=== PATIENT | female | born 1990 | race Asian ===

== ENCOUNTER 2018-08-13 14:33 | Outpatient (CLI) | payer BC ==
--- NOTE | 2018-08-13 16:37 | ULT ---
LEFT BREAST ULTRASOUND: 08/13/18 HISTORY: Palpable mass at the 1 o'clock position of the left breast. FINDINGS: Sonographic evaluation of the region of palpable concern at the 1 o'clock position of the left breast , 1 cm from the nipple, demonstrates a 5 x 3 x 5 mm hypoechoic nonshadowing mass with probable echoge eliana hilum. IMPRESSION: BIRADS 3: Probably Benign Finding Initial Short-Interval Follow-Up Suggested Initial short-term follow up (usually 6-month) examination POS: OFF
== END 2018-08-13 14:34 | disposition home or self-care (01) ==
LOC: BICULT 14:33
PROVIDERS: ATTEND Nurse Practitioner Family
DX: N63.21 Unspecified lump in the left breast, upper outer quadrant (principal); N64.4 Mastodynia